=== PATIENT | female | born 2005 | race African-American/Black ===

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

== ENCOUNTER 2025-05-25 18:09 | Emergency (ER) | payer OTHER, SELFPAY | END 2025-05-25 19:48 | disposition home or self-care (01) | LOC: BURERS 18:09 | DX: S43.402A Unspecified sprain of left shoulder joint, initial encounter (principal); X50.0XXA Overexertion from strenuous movement or load, initial encounter | CPT/HCPCS: 99283 ==